=== PATIENT | female | born 1955 | race Caucasian/White ===

== ENCOUNTER 2017-08-27 19:28 | Emergency (ER) | payer BC ==
[2017-08-27 20:15] VITALS: BP 139/68
--- NOTE | 2017-08-27 21:54 | RAD ---
HISTORY: Left knee trauma, subacute, pain COMPARISONS: None VIEWS: 4, Frontal, lateral, axial, and oblique views of the left knee FINDINGS: BONE DENSITY: Normal. BONES: There is no displaced fracture. JOINTS: There is mild to moderate tricompartmental osteoarthritis. There is no suprapatellar joint effusion or lipohemarthrosis. ALIGNMENT: There is no dislocation. SOFT TISSUES: Unremarkable. OTHER FINDINGS: None. IMPRESSION: NO ACUTE OSSEOUS INJURY. IF SYMPTOMS PERSIST, RECOMMEND REPEAT IMAGING.
--- NOTE | 2017-08-27 21:54 | RAD ---
HISTORY: Right wrist subacute trauma COMPARISONS: None relevant VIEWS: 3, Frontal, lateral, and oblique views of the right wrist FINDINGS: BONE DENSITY: Normal. BONES: There is no displaced fracture. JOINTS: There is no arthropathy. ALIGNMENT: There is no dislocation. SOFT TISSUES: Unremarkable. OTHER FINDINGS: None. IMPRESSION: NO ACUTE OSSEOUS INJURY. IF SYMPTOMS PERSIST, RECOMMEND REPEAT IMAGING.
--- NOTE | 2017-08-27 22:22 | UC ---
Minor Trauma HPI - HPI Summary HPI Summary: 1.5 WEEKS AGO, FELL. HIT AND TWISTED LEFT KNEE AND RIGHT WRIST. SINCE TIME OF INJURY HAS HAD CONTINUED PAIN. - History of Current Complaint Chief Complaint: UCLowerExtremity Stated Complaint: LEFT KNEE INJURY, RIGHT WRIST INJURY Time Seen by Provider: 08/27/17 20:56 Hx Obtained From: Patient Hx Last Menstrual Period: n/a Onset/Duration: Gradual Onset, Lasting Weeks, Still Present Onset Of Pain: Post Accident Severity Initially: Mild Severity Currently: Moderate Mechanism Of Injury: Fall From A Standing Position, Twisted Aggravating Factor(s): Movement, Weight Bearing Alleviating Factor(s): Nothing - Allergies/Home Medications Allergies/Adverse Reactions: Allergies Allergy/AdvReac Type Severity Reaction Status Date / Time seasonal allergies Allergy Eyes Uncoded 08/27/17 20:15 Itchy/Swollen/Red/Watery PMH/Surg Hx/FS Hx/Imm Hx Previously Healthy: Yes - Surgical History Surgical History: Yes Surgery Procedure, Year, and Place: right knee arthroscopy, b/l catartacts, RIGHT shoulder surgery 10/2015 - Family History Known Family History: Positive: Cardiac Disease - in both parents and , Hypertension - Social History Occupation: Employed Full-time Lives: With Family Alcohol Use: None Substance Use Type: None Smoking Status (MU): Never Smoked Tobacco - Immunization History Most Recent Influenza Vaccination: none Most Recent Tetanus Shot: unk Most Recent Pneumonia Vaccination: never Review of Systems Constitutional: Negative Skin: Negative Eyes: Negative ENT: Negative Respiratory: Negative Cardiovascular: Negative Gastrointestinal: Negative Genitourinary: Negative Motor: Negative Neurovascular: Negative Musculoskeletal: Arthralgia, Myalgia Neurological: Negative Psychological: Negative Is Patient Immunocompromised?: No All Other Systems Reviewed And Are Negative: Yes Physical Exam Triage Information Reviewed: Yes Appearance: Well-Appearing, Well-Nourished, Pain Distress Vital Signs: Initial Vital Signs Temp 98 F 08/27/17 20:09 Pulse 78 08/27/17 20:09 Resp 18 08/27/17 20:09 BP 139/68 08/27/17 20:09 Pulse Ox 98 08/27/17 20:09 Vital Signs Reviewed: Yes Eye Exam: Normal ENT Exam: Normal ENT: Positive: Normal ENT inspection Dental Exam: Normal Neck exam: Normal Neck: Positive: Supple, Nontender, No Lymphadenopathy Respiratory Exam: Normal Respiratory: Positive: Chest non-tender, Lungs clear, Normal breath sounds, No respiratory distress Cardiovascular Exam: Normal Cardiovascular: Positive: RRR, No Murmur, Pulses Normal, Brisk Capillary Refill Abdominal Exam: Normal Musculoskeletal: Positive: Strength Limited @ - LEFT KNEE RIGHT WRIST, ROM Limited @, Edema @ - MILD RIGHT WRIST Neurological Exam: Normal Psychological Exam: Normal Skin Exam: Normal Minor Trauma Course/Dx - Differential Dx/Diagnosis Differential Diagnosis/HQI/PQRI: Fracture, Sprain, Strain Provider Diagnoses: RIGHT WRIST SPRAIN; LEFT KNEE SPRAIN Discharge - Discharge Plan Condition: Stable Disposition: HOME Patient Education Materials: Osteoarthritis (ED), Knee Pain (ED), Wrist Sprain (ED) Referrals: Arben Waddell MD [Medical Doctor] - Julio Cesar Salas MD [Primary Care Provider] -
== END 2017-08-27 22:22 | disposition home or self-care (01) ==
LOC: UCCORT 19:28
DX: S63.501A Unspecified sprain of right wrist, initial encounter (principal); S83.92XA Sprain of unspecified site of left knee, initial encounter; W19.XXXA Unspecified fall, initial encounter; Y93.9 Activity, unspecified; Y92.9 Unspecified place or not applicable
CPT/HCPCS: 99213; G0463

== ENCOUNTER 2018-10-08 12:02 | Inpatient (IN) | payer BC ==
--- NOTE | 2018-09-30 23:56 | HP ---
HISTORY AND PHYSICAL: DATE OF ADMISSION/SURGERY: 10/08/18 DATE OF OFFICE VISIT: 09/30/18 SURGEON: Hanna Theodore MD * (DICTATED BY MARTHA JAMESON) PROCEDURE: Left total knee arthroplasty. CHIEF COMPLAINT: Left knee pain. HISTORY OF PRESENT ILLNESS: Ms. Chicas is a 63-year-old female with continued complaints of left knee pain. She has failed conservative treatment and elected to proceed with a left total knee arthroplasty. PAST MEDICAL HISTORY: Hypertension. PAST SURGICAL HISTORY: 1. Right knee arthropathy. 2. Bilateral shoulder arthroscopies. 3. Cataract removal. CURRENT MEDICATIONS: 1. Vitamin D. 2. Baby aspirin. 3. Calcium. 4. Allergy relief. 5. Hydrochlorothiazide 12.5 mg daily. ALLERGIES: No known drug allergies. FAMILY HISTORY: Coronary artery disease and stroke. SOCIAL HISTORY: She is a 63-year-old female, lives with her son. She does not smoke, use drugs, or alcohol. REVIEW OF SYSTEMS: A complete 14-point review of systems was reviewed with the patient, it was all negative or noncontributory. PHYSICAL EXAMINATION GENERAL: She is well developed, well nourished, in no acute distress. VITAL SIGNS: She stands 5 feet 8 inches tall, weighs 280 pounds, her blood pressure 148/84, and heart rate is 84. HEENT: Normocephalic, atraumatic. NECK: Supple. No palpable lymph nodes. PULMONARY: The lungs are clear to auscultation bilaterally. CARDIO: Regular rate and rhythm. Strong S1, S2. ABDOMEN: Soft, nontender, nondistended. NEUROLOGICAL: She is alert and oriented x3. MUSCULOSKELETAL: Left lower extremity, the skin is intact. There are no open wounds or abrasions. She has some tenderness over the medial lateral joint line. There is some moderate joint effusion. Range of motion is 10 to 120 degrees of flexion. She has 2+ dorsalis pedis pulse. Intact sensation. Her lower extremity muscle group strengths are intact at 5/5. ASSESSMENT AND PLAN: Ms. Chicas is a 63-year-old female with end-stage osteoarthritis of the left knee. She has failed conservative treatment and elected to proceed with a left total knee arthroplasty. The surgery is scheduled for 10/08/[address] Theodore discussed the risks and benefits of the surgery at today's visit and all of her questions were answered. She will follow up with Dr. Theodore 2 weeks after the surgery. MARTHA JAMESON [id number]/CPS #: [id number] MTDFrancisca
[~2018-10-08 12:02] MED LIST: Acetaminophen TAB* 325 MG PO ONE; Buffered Lidocaine 0.9% SYRIN* 5 ML/SYR SYRINGE INTRADERM ONE; Bupivacaine 0.5% PF 10 ML VIAL INJ ONE; Famotidine IV* 10 MG/ML 2 ML (20 mg) IV ONE; Gabapentin CAP(*) 300 MG PO ONE; Tranexamic Acid 1,000 MG in NS 0.9% 50 ML* (outpatient use) IV SCH; celeCOXIB CAP* 200 MG PO ONE
--- OUTSIDE RECORDS SUMMARY | 2018-10-08 12:09 | XMS REPORT | Continuity of Care Document ---
:1955 External Reference #:[id number] Author Name Zelalem Lenz Care Team Providers Name Role Phone Julio Cesar Salas MD Primary Care Physician Unavailable Payers Type Date Identification Numbers Payment Provider Subscriber Policy Number: [id number] [employer] Enedina Chicas Group Number: [id number] [address] [address] PayID: [id number] RUSTY Fan [id number] Advance Directives Description No Information Available Problems Date Description Provider Status Onset: 09/04/2018 Localized, primary osteoarthritis Hanna Theodore M.D. 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 ETOH Use Denies alcohol use Tobacco Use Start: Unknown Patient has never smoked Smoking Status Reviewed: 09/30/18 Patient has never smoked Allergies, Adverse Reactions, Alerts Description No Known Drug Allergies Medications Medication Date Status Form Strength Qnty SIG Indications Ordering Provider Vitamin D 00/00/ Active Unknown 0000 Aspirin 00/00/ Active 81mg 1 by Unknown 0000 mouth every day Calcium 00// Active Unknown 0000 Allergy Relief 00/ Active Unknown 0000 Hydrochlorothiazide 0000/ Active Capsules 12.5mg 1 by Unknown 0000 mouth every day Immunizations Description No Information Available Vital Signs Date Vital Result Comment 09/30/2018 9:40am Height 68 inches 5'8" Weight 279.00 lb Heart Rate 84 /min BP Systolic 148 mmHg BP Diastolic 84 mmHg BMI (Body Mass Index) 42.4 kg/m2 09/04/2018 9:03am Height 68 inches 5'8" Weight 279.75 lb Heart Rate 68 /min BP Systolic 144 mmHg BP Diastolic 80 mmHg Respiratory Rate 16 /min Body Temperature 98.3 F Pain Level 5 BMI (Body Mass Index) 42.5 kg/m2 Results Description No Information Available Procedures Date Code Description Status 12/22/2015 74804 EKG, Interpretation Only Completed Encounters Type Date Location Provider Dx Diagnosis Office Visit 09/04/2018 [facility] Theodore, M25.562 [facility] left [facility]25.462 Effusion, left knee M17.12 Unilateral primary osteoarthritis, left knee Office Visit 12/22/2015 [facility] Basim Rosenberg R07.9 Chest pain, 10:31a Assoc,juana BROWN M.D. unspecified Hospitalists R42 Dizziness and giddiness I10 Essential (primary) hypertension Office Visit 12/21/2015 10:30a [facility] Radha Perez R07.9 Chest pain, Assoc,pc Kaveh N[facility]Bon[facility] unspecified Hospitalists R42 Dizziness and giddiness I10 Essential (primary) hypertension Plan of Treatment Future Appointment(s):10/21/2018 9:45 am - Rashaun Arreola PA-C at [facility]10/08/2018 3:30 pm - Rashaun Arreola PA-C at [facility]10/08/2018 3:30 pm - [facility] 3:30 pm - Hanna Theodore M.D. at [facility]09/30/2018 - Hanna Theodore M.D.M25.562 Pain in left kneeFollow up:Follow up: 2 weeks after rtebcktO71.462 Effusion, left kneeM17.12 Unilateral primary osteoarthritis, left knee
[2018-10-08] MEDS ORDERED: Ondansetron INJ* 2 MG/ML VIAL ONE (12:35)
[2018-10-08] MEDS ORDERED: Lidocaine 2% PF * 5 ML VIAL ONE (12:35)
[2018-10-08] MEDS ORDERED: KETAMINE HCL* 50 MG/ML 10 ML VIAL ONE (12:35)
[2018-10-08] MEDS ORDERED: fentaNYL* 50 MCG/ML 2 ML VIAL (100 MCG VIAL) ONE ×4 (12:35→15:38)
[2018-10-08] MEDS ORDERED: Propofol* 10 MG/ML 20 ML BTL ONE (12:35)
[2018-10-08] MEDS ORDERED: Midazolam* 1 MG/ML 10 ML VIAL (10 MG) ONE (12:35)
[2018-10-08] MEDS ORDERED: Dexamethasone IV* 4 MG/ML 1 ML (4 MG) ONE (12:35)
[2018-10-08] MEDS ORDERED: HYDROmorphone INJ1* 1 MG/ML SYRINGE ONE (13:00)
[2018-10-08] MEDS ORDERED: Famotidine IV* 10 MG/ML 2 ML (20 mg) ONE (13:04)
[2018-10-08] MEDS ORDERED: celeCOXIB CAP* 100 MG ONE (13:04)
[2018-10-08] MEDS ORDERED: Acetaminophen TAB* 325 MG ONE (13:04)
[2018-10-08] MEDS ORDERED: ceFAZolin 2 GM PREMIX in ORs 2 GM/50 ML BAG IVPB ONE (13:05)
[2018-10-08] MEDS ORDERED: Gabapentin CAP(*) 300 MG ONE (13:05)
[2018-10-08] MEDS ORDERED: ROPIVACAINE 5 MG/ML 30 ML BTL (0.5%) ONE (13:53)
[2018-10-08] MEDS ORDERED: Labetalol IV* 5 MG/ML 20 ML VIAL ONE (15:41)
[2018-10-08] MEDS ORDERED: Cisatracurium* 2 MG/ML MDV 5 ML ONE (16:02)
[2018-10-08] MEDS ORDERED: ceFAZolin 1 GM VIAL(*) ONE (16:18)
[2018-10-08] MEDS ORDERED: Ondansetron INJ* 2 MG/ML VIAL IV PRN ×2 (16:42→17:22)
[2018-10-08] MEDS ORDERED: HYDROmorphone INJ1* 1 MG/ML SYRINGE IV PRN (16:42)
[2018-10-08] MEDS ORDERED: Naloxone* 0.4 MG/ML 1 ML VIAL IV PRN (16:42)
[2018-10-08] MEDS ORDERED: fentaNYL* 50 MCG/ML 2 ML VIAL (100 MCG VIAL) IV PRN (16:42)
[2018-10-08] MEDS ORDERED: Glycopyrrolate IV* 0.2 MG/ML 1 ML VIAL ONE (16:55)
[2018-10-08] MEDS ORDERED: Neostigmine Methylsulfate* 1 MG/ML 10 ML VIAL (1 mg/ml) ONE (16:55)
[2018-10-08] MEDS ORDERED: traMADol TAB* 50 MG PO PRN (17:22)
[2018-10-08] MEDS ORDERED: Polyethylene Glycol 3350* 17 GM PACKET PO PRN (17:22)
[2018-10-08] MEDS ORDERED: Morphine VIAL* 4 MG/ML VIAL (1 ml vial) IV PRN (17:22)
[2018-10-08] MEDS ORDERED: Bisacodyl SUPP* 10 MG SUPP PR PRN (17:22)
[2018-10-08] MEDS ORDERED: diPHENhydraMINE IV* 50 MG/ML 1 ml VIAL (BENADRYL) IV PRN (17:22)
[2018-10-08] MEDS ORDERED: Magnesium Hydroxide LIQ* 30 ML UDC PO PRN (17:22)
[2018-10-08] MEDS ORDERED: oxyCODONE TAB* 5 MG TAB PO PRN (17:22)
[2018-10-08] MEDS ORDERED: Ondansetron TAB* 4 MG PO PRN (17:22)
[2018-10-08] MEDS ORDERED: Warfarin TAB(*) 6 MG PO ONE ×2 (18:00→22:00)
[2018-10-08] MEDS ORDERED: oxyCODONE/Acetamin 5/325 MG* TAB ONE (18:21)
[2018-10-08] MEDS: oxyCODONE/Acetamin 5/325 MG* TAB PO PRN (18:22)
[2018-10-08] MEDS: Acetaminophen TAB* 325 MG PO SCH (21:59)
[2018-10-08] MEDS: Docusate CAP* 100 MG PO SCH (21:59)
[2018-10-08] MEDS: Magnesium Hydroxide LIQ* 30 ML UDC PO SCH (21:59)
[2018-10-08] MEDS: ceFAZolin 1 GM ADVAN(*) 1 GM in NS 0.9% 50 ML* 50 ML IVPB SCH (22:46)
--- NOTE | 2018-10-08 22:55 | CONS ---
CC: Dr. Theodore; Dr. Salas * CONSULTATION REPORT: DATE OF CONSULT: 10/08/18 PRIMARY CARE PROVIDER: Dr. Salas. REQUESTING PHYSICIAN FOR CONSULT: Dr. Hanna Theodore. MY ATTENDING PHYSICIAN WHILE IN THE HOSPITAL: Dr. China Villanueva (report being dictated by Gary Milton NP). REASON FOR MEDICAL CONSULTATION: Evaluation and medical management of comorbid medical conditions. HISTORY OF PRESENTING ILLNESS: Mrs. Chicas is a 63-year-old female patient that has been dealing with left knee pain for some time. She had failed conservative therapy. She sought care with Dr. Theodore. It was felt that she would benefit from a left total knee. She underwent the left total knee replacement with Dr. Theodore today. She carries a history of hypertension, hyperlipidemia, sarcoidosis, vitamin D deficiency, anxiety, eczema, vertigo, and varicose veins. Because of this complexity, we were asked to evaluate in consult. She is evaluated in the PACU. She says she is feeling loopy, she feels tired. She denies any lightheadedness or dizziness. She denies having any chest pain or shortness of breath. She denies having any abdominal pain. She denies having any vomiting. She says that she does not feel lightheaded and does not feel like she is going to faint. Because of her medical complexity though we were asked to evaluate in consult. PAST MEDICAL HISTORY: Significant for: 1. Hypertension. 2. Hyperlipidemia. 3. Sarcoidosis. 4. Vitamin D deficiency. 5. Anxiety. 6. Eczema. 7. Vertigo. 8. Varicose veins. PAST SURGICAL HISTORY: 1. She has had right knee arthroscopy. 2. Bilateral shoulder arthroscopies. 3. Cataract extraction. 4. Today, she had a left total knee replacement. HOME MEDICATIONS: According to preop list include: 1. Hydrochlorothiazide 12.5 mg p.o. q.a.m. 2. Claritin 10 mg p.o. daily. 3. Vitamin D3 5000 units p.o. q.a.m. 4. Calcium 600 mg p.o. q.a.m. 5. Aspirin 81 mg daily. ALLERGIES TO MEDICATIONS: No known drug allergies. FAMILY HISTORY: Both her parents had MIs. SOCIAL HISTORY: She does not smoke. She does not drink. Surrogate decision maker is her daughter. REVIEW OF SYSTEMS: There is no documented fever. She denied having any significant weight change. There is no double vision. There is no ear discharge. She denies having any rhinorrhea. There is no sore throat. There is no thyroid enlargement. She denied having any chest pain. There is no orthopnea. There is no nocturnal dyspnea. There is no abdominal pain. There is no nausea. There is no vomiting. There is no dysuria, no frequency. No seizure. There is no loss of consciousness. No pruritus and no skin ulcerations. Review of 14 systems completed, all others negative. PHYSICAL EXAM: Vital Signs: Blood pressure 150/77, pulse 73, respirations 20, O2 sat 99%, temperature 97.9. General: At this time, Mrs. Chicas is a 63-year- old female patient, she is sitting in the PACU bed. She does not appear to be in any acute distress. She appears to be well nourished and well developed. HEENT: Head is atraumatic and normocephalic. Eyes: EOMs intact. Sclerae are anicteric and not pale. Neck: Supple. Throat: Oral mucosa appears to be dry. No oropharyngeal erythema. Heart: Sounds S1, S2. She had a regular rate and rhythm. There were no murmurs, rubs, or gallops. Lungs: Clear. No wheezes, rales, or rhonchi. Abdomen: Soft, it was flat and nontender. Bowel sounds were present. Extremities: Pulses were 2+. Distal CSM checks were intact to the left lower extremity. She had 5/5 strength in the right, 5/5 strength in the upper. Neurologically, she had no gross focal deficits. Skin: Intact with an exception she has an incision to the left knee, which is covered with a dressing, clean, dry, and intact. DIAGNOSTIC STUDIES/LAB DATA: Preop WBC 9.3, RBC of 5.29, hemoglobin 15.8, hematocrit of 46, platelet count of 256. INR 0.96, PTT of 30.7. Sodium 139, potassium of 3.9, chloride of 102, bicarb 30, BUN 13, creatinine of 0.69, glucose was 94. Urine showed 1+ blood, 1+ rbc. She had a preop EKG, which showed a normal sinus rhythm, rate 74. She had no ST elevations or T-wave inversions. She had a preop chest x-ray, which showed no active cardiopulmonary disease. Old medical records were reviewed. ASSESSMENT AND PLAN: Mrs. Chicas is a 63-year-old female patient coming into the Orthopedic Service today for an elective left total knee. We were asked to evaluate and consult. My recommendations at this point are: 1. Status post left total knee. We will defer the management to Dr. Theodore and her team. 2. Hypertension. She is on hydrochlorothiazide. I would recommend holding her hydrochlorothiazide and restarting when able. We may consider starting maybe something like Norvasc diuretic postoperatively and may not be the best choice. 3. Sarcoidosis, appears to be stable. We will continue to monitor. 4. Hyperlipidemia. Follow up with primary care physician. 5. Vitamin D deficiency, not an active issue. Follow up with primary care physician. 6. Anxiety. Continue with supportive care. 7. Eczema, not an active issue currently. We will follow. 8. Vertigo. Again monitor for any symptoms, not an active issue. 9. Varicose veins. Again follow up with primary care physician. 10. DVT prophylaxis. Defer to primary team. 11. Fluids, electrolytes, and nutrition. I would recommend a regular diet. 12. Code status. Full code. TIME SPENT: Time spent on the consult was 60 minutes; greater than half of the time spent [id number] with the patient obtaining my history and physical, the other half time was spent going over the plan of care with the patient and implementing plan of care. I did discuss the plan of care with my attending, Dr. Villanueva; she is in agreement. GARY MILTON NP [id number]/CPS #: [id number] JAYDON
[2018-10-09] MEDS: Cyclobenzaprine TAB* 10 MG PO PRN ×2 (00:09→19:50)
[2018-10-09] MEDS: oxyCODONE/Acetamin 5/325 MG* TAB PO PRN ×4 (05:32→20:05)
[2018-10-09] MEDS: Acetaminophen TAB* 325 MG PO SCH ×3 (07:01→22:29)
[2018-10-09] MEDS: ceFAZolin 1 GM ADVAN(*) 1 GM in NS 0.9% 50 ML* 50 ML IVPB SCH ×2 (07:13→16:06)
--- NOTE | 2018-10-09 07:17 | PN ---
Progress Note - Progress Note Date of Service: 10/09/18 SOAP: Subjective: Pt. is alert, pain is controlled. Objective: Vital Signs: Temp Pulse Resp BP Pulse Ox 97.6 F 90 18 154/56 95 10/09/18 01:55 10/09/18 01:55 10/09/18 05:32 10/09/18 01:55 10/09/18 01:55 LLE - dressing c/d/i. thigh ttp but soft. distally +df/pf, full sens lt, 2+ dp pulse. Assessment: 63 yo F pod 1 s/p LTKA Plan: wbat lle pt/ot lovenox vs eliquis for dvt plan home with vns - home pt
[2018-10-09 08:01] LABS: Hematocrit 34 % (35-47); Hemoglobin 11.8 g/dl (12.0-16.0); Mean Platelet Volume 9.3 fL (7.4-10.4); Platelet Count 220 10^3/ul (150-450)
[2018-10-09 08:08] LABS: INR 1.03 (0.77-1.02)
[2018-10-09 08:20] LABS: EGFR Non-African American 85.9 (>60)
[2018-10-09] MEDS ORDERED: NON FORMULARY MED* (Hydrochlorothiazide [Hydrochlorothiazide] 12.5 MG) PO SCH (09:00)
[2018-10-09] MEDS: Docusate CAP* 100 MG PO SCH ×2 (10:00→20:05)
[2018-10-09] MEDS: Magnesium Hydroxide LIQ* 30 ML UDC PO SCH ×2 (10:01→20:04)
[2018-10-09] MEDS: Enoxaparin(*) 40 MG/0.4 ML SYR SUBCUT SCH (12:53)
--- NOTE | 2018-10-09 12:55 | PN ---
Subjective Date of Service: 10/09/18 Interval History: Ms. Chicas is feeling ok today. She reports minimal pain. Pain was improved with ice. She has not been up yet today. Denies CP, SOB, N/V/D, dizziness. Reports that she does not typically have an issue with constipation and is not concerned, but does have laxatives at home which she can use if necessary. Family History: Unchanged from Admission Social History: Unchanged from Admission Past Medical History: Unchanged from Admission Objective Active Medications: Acetaminophen (Tylenol Tab*) 975 mg PO Q8H BRISA Bisacodyl (Dulcolax Supp*) 10 mg TX DAILY PRN constipation Cyclobenzaprine HCl (Flexeril Tab*) 10 mg PO TID PRN SPASMS Diphenhydramine HCl (Benadryl Iv*) 12.5 mg IV Q6H PRN PRURITIS Docusate Sodium (Colace Cap*) 100 mg PO BID BRISA Enoxaparin Sodium (Lovenox(*)) 40 mg SUBCUT Q24H BRISA Cefazolin Sodium 1 gm/ Sodium (Chloride) 50 mls @ 200 mls/hr IVPB Q8H BRISA Lactated Ringer's (Lactated Ringers 1000 Ml Bag*) 1,000 mls @ 100 mls/hr IV PER RATE BRISA Lactulose (Lactulose*) 30 ml PO Q6H PRN constipation Magnesium Hydroxide (Milk Of Magnesia Liq*) 30 ml PO BID BRISA Magnesium Hydroxide (Milk Of Magnesia Liq*) 30 ml PO Q6H PRN constipation Morphine Sulfate (Morphine Vial*) 2 mg IV Q2H PRN PAIN Ondansetron HCl (Zofran Inj*) 4 mg IV Q6H PRN nausea Ondansetron HCl (Zofran Tab*) 4 mg PO Q6H PRN NAUSEA Oxycodone HCl (Roxycodone Tab*) 10 mg PO Q4H PRN SEVERE PAIN Oxycodone/Acetaminophen (Percocet 5/325 Tab*) 1 tab PO Q4H PRN PAIN Oxycodone/Acetaminophen (Percocet 5/325 Tab*) 2 tab PO Q4H PRN PAIN Polyethylene Glycol/Electrolytes (Miralax*) 17 gm PO DAILY PRN Constipation Tramadol HCl (Ultram*) 50 mg PO Q6H PRN PAIN Vital Signs - 8 hr 10/09/18 10/09/18 10/09/18 05:32 07:28 08:00 Temperature 98.0 F Pulse Rate 89 Respiratory 18 18 18 Rate Blood Pressure 126/54 (mmHg) O2 Sat by Pulse 94 94 Oximetry Oxygen Devices in Use Now: None Appearance: Middle-aged female sitting in bed in NAD Eyes: No Scleral Icterus Ears/Nose/Mouth/Throat: Mucous Membranes Moist Neck: NL Appearance and Movements; NL JVP, Trachea Midline Respiratory: Symmetrical Chest Expansion and Respiratory Effort, Clear to Auscultation Cardiovascular: NL Sounds; No Murmurs; No JVD Abdominal: NL Sounds; No Tenderness; No Distention Extremities: - - Mild nonpitting edema to LLE Skin: - - Surgical dressing in place to left knee Neurological: Alert and Oriented x 3, NL Sensation Lines/Tubes/Other Access: Clean, Dry and Intact Peripheral IV Nutrition: Taking PO's Result Diagrams: 10/09/18 07:32 10/09/18 07:32 Assess/Plan/Problems-Billing Assessment: Ms. Chicas is a 63yo with PMH of HTN, HLD, sarcoidosis, and anxiety who presented to [facility] [place] on 10/08 for an elective L TKA with Dr. Theodore. [facility] medicine is consulting for co-medical management. - Patient Problems (1) Status post total left knee replacement Current Visit: Yes Status: Acute Code(s): Z96.652 - PRESENCE OF LEFT ARTIFICIAL KNEE JOINT SNOMED Code(s): 0633465934612 Comment: - Management per ortho - Pain control, PT (2) Essential hypertension Current Visit: No Status: Chronic Code(s): I10 - ESSENTIAL (PRIMARY) HYPERTENSION SNOMED Code(s): 28282358 Comment: - Normotensive - May resume HCTZ at d/c (3) Hyperlipidemia Current Visit: Yes Status: Acute Code(s): E78.5 - HYPERLIPIDEMIA, UNSPECIFIED SNOMED Code(s): 17735312 Comment: - Diet controlled (4) DVT prophylaxis Current Visit: Yes Status: Acute Code(s): MOC4441 - SNOMED Code(s): 641994499 Comment: - Lovenox per ortho (5) Full code status Current Visit: Yes Status: Acute Code(s): Z78.9 - OTHER SPECIFIED HEALTH STATUS SNOMED Code(s): 466571481 Status and Disposition: Disposition per Orthopedics. Thank you for this consultation. We will continue to follow distantly. Please call with any questions. Attending: Bibiana Fernandez
[2018-10-10] MEDS: oxyCODONE/Acetamin 5/325 MG* TAB PO PRN ×3 (00:43→10:23)
--- NOTE | 2018-10-10 00:49 | OP ---
OPERATIVE NOTE: DATE OF OPERATION: 10/08/18 DATE OF : 55 ATTENDING SURGEON: Hanna Theodore MD SACK CLEANING HAND: MARTHA Adhikari Ms. did help throughout the procedure with preparation of the leg, wound retraction, manipul ation of the knee, and wound closure. ANESTHESIOLOGIST: Dr. Lam. ANESTHESIA: General. PRE-OP DIAGNOSIS: Severe end-stage degenerative osteoarthritis of the left knee joint. POST-OP DIAGNOSIS: Severe end-stage degenerative osteoarthritis of the left knee joint. OPERATIVE PROCEDURE: Left total knee arthroplasty. TOURNIQUET TIME: 55 minutes. COMPLICATIONS: None. ESTIMATED BLOOD LOSS: 400 cc. SPECIMENS: Bone and cartilage from the left knee joint sent to Pathology. HARDWARE USED: This is cemented Blas and Nephew total knee arthroplasty hardware. Two packages of S implex bone cement were used. For the femur, a left 5 narrow Oxinium posterior stabilized femoral co mponent, type Legion. For the tibia, a size 3 left Ximena II tibial base plate. For the insert, a 9 mm posterior stabilized articular insert size 3/4. For the patella, a 32 mm 3-peg all poly patella . INDICATIONS: Ms. Chicas is a 63-year-old female with years of increasingly severe left knee pain. R adiographs showed advanced arthritis. Due to continued pain and decreased quality of life, the patie nt elected to undergo a left total knee arthroplasty. Informed consent was obtained from the patient . She understood the risks of surgery included, but were not limited to, bleeding, infection, damage to nearby structures, continued pain, need for further surgery, intraoperative fracture, nerve palsy , hardware failure or loosening, knee stiffness, loss of motion, stroke, heart attack, blood clot, an d . She wished to proceed. INTRAOPERATIVE FINDINGS: Intraoperatively, the patient was found to have advanced arthritis with com plete loss of cartilage in all compartments. She had extensive osteophyte formation. DESCRIPTION OF PROCEDURE: Ms. Chicas was identified in the preanesthesia unit. Her left lower extrem ity was marked as the correct operative side. Informed consent was obtained from the patient. The p atient was taken to the operating room and placed under anesthesia. A Kong catheter was placed. To urniquet was placed on the left thigh. Left lower extremity was prepped and draped in the usual ster ile fashion. Preop time-out was made to correctly identify the patient, side, and site. Appropriate perioperative antibiotics were given within 1 hour of incision. Tourniquet was inflated and total tourniquet time for this procedure was 55 minutes. A midline incis ion was made with a 10 blade and carried down to the extensor mechanism. A new 10 blade was used to make a standard medial parapatellar arthrotomy. Patella was subluxed laterally. Electrocautery was used to elevate soft tissue off the superomedial tibia to the mid sagittal plane. The knee was flexe d up. The anterior horn of the lateral meniscus and ACL were sharply released. A drill was used to enter the distal femur. Intramedullary distal femoral cutting guide was pinned on the distal femur. Oscillating saw was used to make the distal femoral cut. Next, the external rotation guide was pinn ed on the distal femur. Distal femur was sized to a size 5. Size 5 multi-cutting jig was pinned on the distal femur. Oscillating saw was used to make the appropriate 4 chamfer cuts. The PCL was completely released. The tibia was subluxed anteriorly. Extramedullary tibial cutting gu sourav was pinned on the proximal tibia. Oscillating saw was used to make the proximal tibial cut perpe ndicular to the mechanical axis of the tibia. The bone was carefully removed. The knee was brought out into full extension. Spacer block had excellent fit. Medial and lateral ligaments were well bal anced. Flexion and extension gaps were well balanced. The knee was flexed up. Lamina chemical weigher was p laced both medially and laterally. Any remaining meniscus was carefully removed using electrocautery . Curved osteotome was used to remove any posterior osteophytes. Tibial tray and drop daily were plac ed and once again confirmed a satisfactory tibial cut. A size 5 narrow left femoral trial was impacted onto the distal femur and had excellent fit and stabi lity. The box for the posterior stabilized implant was prepared using a reamer and box-cut osteotome . A size 3 tibial tray trial with a 9 mm insert trial was placed and the knee was taken through a ra nge of motion. The knee had full extension and 120 degrees of flexion with satisfactory patellofemor al tracking. Flexion was inhibited by the patient's morbidly obese body habitus. The knee was extended and the patella was everted. A 9 mm of patellar bone and cartilage were carefu lly removed using an oscillating saw. Patella was sized to a size 32. Three peg holes were drilled through the size 32 guide. A 32 trial patella was placed and the knee was taken through a range of m otion. There was satisfactory patellofemoral tracking. All trials were carefully removed. The tibi a was subluxed anteriorly and sized to a size 3. Proximal tibia was prepared using a size 3 keel pun ch. All bony cut surfaces were copiously irrigated with sterile saline and dried. Final implants we re cemented into place starting with the tibia, followed by the femur, and last the patella. A 9 mm insert trial was placed and the knee was brought out into full extension. Tourniquet was turned down at 55 minutes. The knee was copiously irrigated with sterile saline. Electrocautery was used to obtain meticulous h emostasis. Once the cement had fully cured, the insert trial was removed. Any excess cement was rem garry from around the capsule and hardware. Final insert chosen was a 9 mm posterior stabilized articu lar insert size 3/4. This was locked into position on the tibial tray. Stability of the insert was c hecked and rechecked and noted to be stable. The extensor mechanism was closed using interrupted #1 Vicryl. The rest of the incision was closed i n a layered fashion using 0 and 2-0 Vicryl. Skin was closed using running 3-0 nylon. Sterile Xerofo rm, 4x4s, and Webril were used to cover the incision. Doyle wrap and cold pack were placed over this. The patient's anesthesia was reversed without difficulty. She was taken to the PACU in stable condi tion. Intended weightbearing will be weightbearing as tolerated. Intended DVT prophylaxis will be Lo venox or Eliquis. [id number]/[facility] #: [id number]
[2018-10-10] MEDS: Acetaminophen TAB* 325 MG PO SCH (05:53)
[2018-10-10 06:30] LABS: Hematocrit 33 % (35-47); Hemoglobin 11.4 g/dl (12.0-16.0); Platelet Count 168 10^3/ul (150-450)
[2018-10-10 06:34] LABS: INR 1.11 (0.77-1.02)
[2018-10-10 06:54] LABS: EGFR Non-African American 102.9 (>60)
[2018-10-10 07:51] VITALS: BP 124/52
--- NOTE | 2018-10-10 08:17 | PN ---
Progress Note - Progress Note Date of Service: 10/10/18 SOAP: Subjective: POD #2 Left TKA. Doing well, pain controlled. Denies CP/SOB, f/c, calf pain. Objective: Vitals: Temp Pulse Resp BP Pulse Ox 98.1 F 86 16 124/52 98 10/10/18 07:24 10/10/18 07:24 10/10/18 07:24 10/10/18 07:24 10/10/18 07:24 Gen: A&Ox3, NAD at rest laying in bed LLE: Incision C/D/I, mild edema. +f/e at ankles and MTPs. N/V intact Labs: Laboratory Results - last 24 hr 10/09/18 10/10/18 10/10/18 07:32 06:11 06:11 Hgb 11.4 L Hct 33 L Plt Count 168 MPV 9.0 INR (Anticoag Therapy) 1.11 H Sodium 136 Potassium 4.2 Chloride 103 Carbon Dioxide 28 Anion Gap 5 BUN 11 Creatinine 0.69 Est GFR ( Amer) 104.0 Est GFR (Non-Af Amer) 85.9 BUN/Creatinine Ratio 15.9 Glucose 158 H Calcium 8.6 10/10/18 06:11 Hgb Hct Plt Count MPV INR (Anticoag Therapy) Sodium 138 Potassium 4.1 Chloride 104 Carbon Dioxide 30 Anion Gap 4 BUN 14 Creatinine 0.59 Est GFR ( Amer) 124.6 Est GFR (Non-Af Amer) 102.9 BUN/Creatinine Ratio 23.7 H Glucose 148 H Calcium 8.3 L Assessment: POD #2 Left TKA Plan: D/C home today Eliquis 2.5mg BID for DVT ppx F/u with Dr. Theodore 10-14 days post op
[2018-10-10] MEDS: Docusate CAP* 100 MG PO SCH (08:52)
[2018-10-10] MEDS: Magnesium Hydroxide LIQ* 30 ML UDC PO SCH (08:53)
[2018-10-10] MEDS: Enoxaparin(*) 40 MG/0.4 ML SYR SUBCUT SCH (10:57)
--- NOTE | 2018-10-10 21:54 | DS ---
AMENDED REPORT NOW INCLUDES DESIGNATED COSIGNER DISCHARGE SUMMARY: DATE OF ADMISSION: 10/08/18 DATE OF DISCHARGE: 10/10/18 PROVIDER: Dr. Hanna Theodore.* (DICTATED BY MARTHA RUBIO) ADMITTING DIAGNOSIS: Severe end-stage osteoarthritis of the left knee. DISCHARGE DIAGNOSIS: Severe end-stage osteoarthritis of the left knee, status post left total knee arthroplasty. SECONDARY DIAGNOSIS: Hypertension. HISTORY OF PRESENT ILLNESS: Ms. Chicas is a 63-year-old female who has had continued complaints of left knee pain. She failed conservative treatment and elected to proceed with a left total knee arthroplasty. HOSPITAL COURSE: On 10/08/18, the patient was admitted to [facility] and underwent a successful left total knee arthroplasty by Dr. Theodore. She recovered briefly in the postanesthesia care unit and was transferred to the short- stay surgical unit in stable condition. On postop day 1, the patient was able to participate with physical therapy and ambulate with the use of a rolling walker. She had an H and H of 11.8 and 34, INR was 1.03. Kong catheter was removed. She was able to void without difficulty. On postop day 2 , patient's pain was controlled with oral pain medication only. She is able to again ambulate with physical therapy a longer distance. H and H was stable at 11.4 and 33. INR 1.11. Throughout her hospital course, the patient's vital signs were stable and she remained afebrile. She was found stable for discharge home on postop day 2. DISCHARGE CONDITION: Stable. DISCHARGE DISPOSITION: Home. DISCHARGE MEDICATIONS: The patient will use: 1. Percocet 5/325 mg 1 to 2 tabs p.o. 4 to 6 hours p.r.n. pain. 2. Eliquis 2.5 mg p.o. b.i.d. for DVT prophylaxis. 3. Colace 100 mg p.o. b.i.d. She will resume her home medications of: 1. Hydrochlorothiazide 12.5 mg daily. 2. Claritin 10 mg daily. 3. Vitamin D3 5000 units daily. 4. Calcium 600 mg daily. 5. Aspirin 81 mg daily. DISCHARGE INSTRUCTIONS: The patient will be weightbearing as tolerated with the use a rolling walker. She will shower normally and wash the incision on postop day 3. She will apply a dry dressing as needed. She is understanding not to submerge the wound in a bathtub, hot tub, or swimming pool. She will follow up in the office in the 10 to [address] Theodore. She will have home nursing services for wound checks and physical therapy. All of her questions were answered to her full satisfaction. She is understanding to call with any problems or concerns. MARTHA RUBIO [id number]/[facility] #: [id number] JAYDON
== END 2018-10-10 11:50 | disposition home health service (06) | DRG 302 ==
LOC: AA 12:02 → SSU 19:38
PROVIDERS: ADMIT Orthopaedic Surgery Adult Reconstructive Orthopaedic Surgery; ATTEND Orthopaedic Surgery Adult Reconstructive Orthopaedic Surgery
PROC: 0SRD069 Replacement of Left Knee Joint with Oxidized Zirconium on Polyethylene Synthetic Substitute, Cemented, Open Approach (ICD-10-PCS; principal; 2018-10-08 15:00)
DX: M17.12 Unilateral primary osteoarthritis, left knee (principal); I10 Essential (primary) hypertension; Z96.651 Presence of right artificial knee joint; M25.462 Effusion, left knee; E78.5 Hyperlipidemia, unspecified; D86.9 Sarcoidosis, unspecified; E55.9 Vitamin D deficiency, unspecified; F41.9 Anxiety disorder, unspecified; M25.762 Osteophyte, left knee; I83.90 Asymptomatic varicose veins of unspecified lower extremity; L30.9 Dermatitis, unspecified; K59.00 Constipation, unspecified; Z79.01 Long term (current) use of anticoagulants; Z79.82 Long term (current) use of aspirin; Z98.49 Cataract extraction status, unspecified eye; Z82.49 Family history of ischemic heart disease and other diseases of the circulatory system; Z82.3 Family history of stroke
CPT/HCPCS: 36415; 80048; 85014; 85018; 85049; 85610; 88305; 88311; A9270-GY; J0690; J1100; J1170; J1650; J2250; J2405; J2704; J2710; J2795; J3010

== ENCOUNTER 2019-07-15 09:07 | Inpatient (IN) | payer BC ==
--- NOTE | 2019-07-08 15:40 | HP ---
AMENDED REPORT NOW INCLUDES DESIGNATED COSIGNER - ESIGNED BEFORE ADJUSTMENTS PREOPERATIVE HISTORY AND PHYSICAL: DATE OF ADMISSION/SURGERY: 07/15/19 ATTENDING PHYSICIAN: Dr. Hanna Theodore.* (DICTATED BY MARTHA DELA CRUZ) PROCEDURE: Right total knee arthroplasty. CHIEF COMPLAINT: Right knee pain. HISTORY OF PRESENT ILLNESS: This is a 64-year-old female followed by Dr. Theodore for severe right knee pain that has become progressively worse over the last few years. She can no longer walk more than 2 blocks due to the pain and has tried anti- inflammatories, pain medicine, physical therapy, and other conservative treatments without improvement. She is seeking surgical intervention at this time. PAST MEDICAL HISTORY: Hypertension, osteoarthritis, morbid obesity. She denies history of DVT or PE. PAST SURGICAL HISTORY: Shoulder arthroscopy, cataract surgery, left total knee arthroplasty in September 2018. She denies anesthetic complications with these procedures. MEDICATIONS: 1. Vitamin D 1 tab by mouth daily. 2. Aspirin 81 mg 1 tab by mouth daily. 3. Calcium 600 mg 1 tab by mouth daily. 4. Hydrochlorothiazide 12.5 mg 1 tab by mouth daily. 5. Loratadine 10 mg 1 tab by mouth daily. ALLERGIES: None. FAMILY HISTORY: Heart disease, but no diabetes or cancer. SOCIAL HISTORY: She lives with her son and grandchild and they will be caring for her postoperatively. 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 She denies tobacco, alcohol , or recreational drug use. She is normally an independent ambulator. REVIEW OF SYSTEMS: Fourteen systems were reviewed with the patient today and positive for right knee pain and swelling. Negative for fevers, chills, chest pain, or shortness of breath, and all other systems are negative. PHYSICAL EXAMINATION GENERAL: She is a well-developed, well-nourished female, seated on exam table, in no acute distress, with appropriate affect. VITAL SIGNS: Height 68 inches, weight 286 pounds. Pulse 80, blood pressure 144 /84, respirations 18. HEENT: Normocephalic, atraumatic. Hearing and vision are grossly intact, with extraocular movements intact. NECK: The trachea is midline and symmetrical. LUNGS: Clear to auscultation. No wheezes, rales, or rhonchi appreciated. CARDIO: Regular rate and rhythm. Normal S1, S2. No murmurs, rubs, or gallops noted. ABDOMEN: Nondistended. Bowel sounds present. GENITOURINARY: Deferred. MUSCULOSKELETAL: Right lower extremity: The skin is pink, dry, and intact with no open wounds or abrasions. Mild effusion is noted at the knee. She extends the knee to 10 degrees, flexes to 100 with pain with patellofemoral crepitus. Stable to varus and valgus stress. Sensation is intact. Active range of motion in the right ankle. 2+ dorsalis pedis pulse. IMAGING: Previous x-rays obtained in the office show a left knee with a total cemented total knee arthroplasty. The right knee shows severe end-stage osteoarthritis with medial [id number]-[id number] contact and tricompartmental joint space narrowing, osteophyte formation and subchondral sclerosis. ASSESSMENT: Severe right knee osteoarthritis. PLAN: Right total knee arthroplasty with Dr. Theodore. The patient's questions were answered and she would like to proceed. Dr. Theodore reviewed the potential risks and complications of the procedure. She will follow up postoperatively and pain medication will be dispensed postoperatively. MARTHA DELA CRUZ [id number]/[facility] #: [id number] JAYDON
[~2019-07-15 09:07] MED LIST changes: -Buffered Lidocaine 0.9% SYRIN* 5 ML/SYR SYRINGE INTRADERM ONE; +Buffered Lidocaine 1% SYRIN* 1 ML/SYRINGE INTRADERM ONE; -Bupivacaine 0.5% PF 10 ML VIAL INJ ONE; +Dexamethasone TAB* 4 MG PO ONE; +Lactated Ringers 1000 ML Bag* 1,000 ML IV SCH; +Ondansetron ODT TAB* 4 MG PO ONE
--- OUTSIDE RECORDS SUMMARY | 2019-07-15 09:10 | XMS REPORT | Continuity of Care Document ---
:1955 External Reference #:[id number] Author Name Evelin Torres Care Team Providers Name Role Phone Julio Cesar Salas MD Primary Care Physician Unavailable Payers Date Identification Numbers Payment Provider Subscriber Policy Number: [id number] [employer] Enedina Chicas Group Number: [id number] [address] [address] PayID: [id number] RUSTY Fan [address] Problems Active Problems Provider Date Arthroplasty of knee Hanna Theodore M.D. Onset: 05/31/2019 Localized, primary osteoarthritis Hanna Theodore M.D. 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 Denies alcohol use Tobacco Use Start: Unknown Patient has never smoked Smoking Status Reviewed: 05/31/19 Patient has never smoked Exercise Type/Frequency Outdoor activity Allergies, Adverse Reactions, Alerts Description No Known Drug Allergies Medications Active Medications SIG Qnty Indications Ordering Date Provider Vitamin D 1 tab by Unknown mouth every day Aspirin 1 by mouth Unknown 81mg every day Calcium 1 tab by Unknown 600mg Tablets mouth every day Hydrochlorothiazide 1 by mouth Unknown 12.5mg Capsules every day Loratadine 1 by mouth Unknown 10mg Tablets every day History Medications Amoxicillin take 4 tablets by 4tabs Hanna Theodore, 01/01/2019 - 500mg mouth 1 hour before M.D. 04/18/2019 Tablets dental procedure Percocet take 1-2 tabs by 70tabs Z47.1 Hanna Theodore, 10/10/2018 - 5-325mg mouth q4-6 hours as M.D. 11/19/2018 Tablets needed pain patient has been taking this dose in hospital for post op pain Eliquis take 1 tablet by 60tabs Hanna Theodore, 10/10/2018 - 2.5mg mouth twice a day M.D. 12/31/2018 Tablets Colace 1 tab by mouth twice 30caps Hanna Theodore, 10/10/2018 - 100mg a day as needed for M.D. 11/19/2018 Capsules constipation Allergy Relief Unknown - 04/19/2019 Vital Signs Date Vital Result Comment 05/31/2019 8:59am Height 68 inches 5'8" Weight 287.00 lb Heart Rate 82 /min BP Systolic 148 mmHg BP Diastolic 82 mmHg Body Temperature 99.1 F Pain Level 6 BMI (Body Mass Index) 43.6 kg/m2 04/19/2019 9:05am Height 68 inches 5'8" Weight 287.50 lb Heart Rate 82 /min BP Systolic Sitting 140 mmHg Lue large cuff BP Diastolic Sitting 86 mmHg Lue large cuff Respiratory Rate 14 /min O2 % BldC Oximetry 96 % BMI (Body Mass Index) 43.7 kg/m2 Neck Circumference in inches 17.50 01/01/2019 10:12am Height 68 inches 5'8" Weight 275.00 lb BP Systolic 160 mmHg BP Diastolic 88 mmHg Body Temperature 98.7 F BMI (Body Mass Index) 41.8 kg/m2 11/20/2018 10:56am Height 68 inches 5'8" Weight 275.00 lb BP Systolic 121 mmHg BP Diastolic 76 mmHg Respiratory Rate 16 /min Pain Level 1 BMI (Body Mass Index) 41.8 kg/m2 10/21/2018 9:21am Height 68 inches 5'8" Weight 275.00 lb BP Systolic 136 mmHg BP Diastolic 82 mmHg Respiratory Rate 16 /min Body Temperature 98.2 F Pain Level 4 BMI (Body Mass Index) 41.8 kg/m2 10/14/2018 11:34am Height 68 inches 5'8" Weight 275.00 lb BP Systolic 140 mmHg BP Diastolic 80 mmHg Body Temperature 99.0 F BMI (Body Mass Index) 41.8 kg/m2 09/30/2018 9:40am Height 68 inches 5'8" Weight [...] BMI (Body Mass Index) 42.5 kg/m2 Results Test Date Facility Test Result H/L Range Note CBC Auto 09/30/2018 [facility] White Blood 9.3 10^3/uL Normal 3.5-10.[address] [place] [address] [phone] Red Blood Count 5.29 10^6/uL Normal 4.00-5.40 Hemoglobin 15.8 g/dL Normal 12.0-16.0 Hematocrit 46 % Normal 35-47 Mean Corpuscular Volume 87 fL Normal 80-97 Mean Corpuscular Hemoglobin 30 pg Normal 27-31 Mean Corpuscular HGB Conc 34 g/dL Normal 31-36 Red Cell Distribution Width 14 % Normal 10.5-15 Platelet Count 256 10^3/uL Normal 150-450 Mean Platelet Volume 9.2 fL Normal 7.4-10.4 Abs Neutrophils 5.2 10^3/uL Normal 1.5-7.7 Abs Lymphocytes 3.2 10^3/uL Normal 1.0-4.8 Abs Monocytes 0.6 10^3/uL Normal 0-0.8 Abs Eosinophils 0.2 10^3/uL Normal 0-0.6 Abs Basophils 0.1 10^3/uL Normal 0-0.2 Abs Nucleated RBC 0 10^3/uL Granulocyte % 55.7 % Lymphocyte % 34.9 % Monocyte % 6.8 % Eosinophil % 1.7 % Basophil % 0.9 % Nucleated Red Blood Cells % 0 Urinalysis Profile 09/30/2018 [facility] Urine Color Yellow [address] [place] [address] [phone] Urine Appearance Cloudy Urine Specific Williams 1.011 Normal 1.010-1.030 Urine pH 5.0 Normal 5-9 Urine Urobilinogen Negative Negative Urine Ketones Negative Negative Urine Protein Negative Negative Urine Leukocytes Negative Negative Urine Blood 1+ Abnormal Negative Urine Nitrite Negative Negative Urine Bilirubin Negative Negative Urine Glucose Negative Negative Urine White Blood Cell Trace(0-5/hpf) Absent Urine Red Blood Cell 1+(3-5/hpf) Abnormal Absent Urine Bacteria Absent Absent Urine Squamous Epithelial Cell Present Abnormal Absent Comp Metabolic 09/30/2018 [facility] Sodium 139 mmol/L Normal 135-[address] [place] [address] [phone] Potassium 3.9 mmol/L Normal 3.5-5.0 Chloride 102 mmol/L Normal 101-111 Co2 Carbon Dioxide 30 mmol/L Normal 22-32 Anion Gap 7 mmol/L Normal 2-11 Glucose 94 mg/dL Normal 70-100 Blood Urea Nitrogen 13 mg/dL Normal 6-24 Creatinine 0.69 mg/dL Normal 0.51-0.95 BUN/Creatinine Ratio 18.8 Normal 8-20 Calcium 10.1 mg/dL Normal 8.6-10.3 Total Protein 7.1 g/dL Normal 6.4-8.9 Albumin 4.0 g/dL Normal 3.2-5.2 Globulin 3.1 g/dL Normal 2-4 Albumin/Globulin Ratio 1.3 Normal 1-3 Total Bilirubin 0.70 mg/dL Normal 0.2-1.0 Alkaline Phosphatase 85 U/L Normal 34-104 Alt 35 U/L Normal 7-52 Ast 24 U/L Normal 13-39 Egfr Non- 85.9 >60 Egfr 104.0 >60 1 Inr/Protime 09/30/2018 [facility] Inr 0.96 Normal 0.77-1.[address] [place] [address] [phone] Laboratory test 09/30/2018 [facility] Partial 30.7 Normal 26.0 -36.[address] [address] Time PTT [phone] Type & Screen 09/30/2018 [facility] Patient O Positive [address] Blood Type [place], [place] [id number] [phone] Antibody Screen NEGATIVE Urine Culture And 09/30/2018 [facility] Urine Culture SEE RESULT [address] [place], [place] [id number] [phone] 1 Because ethnic data is not always readily available, this report includes an eGFR for both -Americans and non- Americans. The National Kidney Disease Education Program (NKDEP) does not endorse the use of the MDRD equation for patients that are not between the ages of 18 and 70, are , have extremes of body size, muscle mass, or nutritional status, or are non- or non-. According to the National Kidney Foundation, irrespective of diagnosis, the stage of the disease is based on the level of kidney function: Stage Description GFR(mL/min/1.73 m(2)) 1 Kidney damage with normal or decreased GFR 90 2 Kidney damage with mild decrease in GFR 60-89 3 Moderate decrease in GFR 30-59 4 Severe decrease in GFR 15-29 5 Kidney failure <15 (or dialysis) 2 SEE RESULT BELOW Name: JUANENEDINA : [address]: Hanna Theodore MD Acct: [id number] Unit: [id number] AGE: 63 Location: [facility] Re09/30/18 SEX: F Status: REG REF SPEC: [id number] RAMY: 09/30/18-1216 [facility] DR: Hanna Theodore MD REQ: [id number] RECD: 09/30/18124 STATUS: SHELIA DE LA PAZ DR: Julio Cesar Salas MD PC _ SOURCE: URINE SPDESC: ORDERED: Urine Culture QUERIES: Urine Source: Clean Catch Procedure Result Reported Site Urine Culture Final 10/01/18- 1218 ML No growth of clinically significant organisms * ML - Main Lab . END OF REPORT DEPARTMENT OF PATHOLOGY, [address] [place] [address] Carmelo Vick M.D. 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 Annika knee M25.462 Effusion, left knee M17.12 Unilateral primary osteoarthritis, left knee Office Visit 12/22/2015 [facility] Basim Rosenberg R07.9 Chest pain, 10:31a Assoc,juana BROWN M.D. unspecified Hospitalists R42 Dizziness and giddiness I10 Essential (primary) hypertension Office Visit 12/21/2015 10:30a [facility] Radha Perez R07.9 Chest pain, Assoc,juana Linn N.Myrna unspecified Hospitalists R42 Dizziness and giddiness I10 Essential (primary) hypertension Plan of Treatment Future Appointment(s):07/05/2019 9:00 am - [facility] 9:30 am - Nanette Ko NP at [facility]05/31/2019 - Hanna Theodore M.D.M25.561 Pain in right kneeNew Xrays:Knee 3 Views Bilateral, Ordered: 05/31/19M25.562 Pain in left kneeNew Xrays:Knee 3 Views Bilateral, Ordered: 05/31/19M25.461 Effusion, right kneeM17.11 Unilateral primary osteoarthritis, right kneeZ96.652 Presence of left artificial knee joint
--- OUTSIDE RECORDS SUMMARY | 2019-07-15 09:10 | XMS REPORT | Continuity of Care Document ---
:1955 External Reference #:[id number] Author Name Nanette Ko NP (transmitted by agent of provider Amy Mccormick) Address [address] 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 Onset: 05/31/2019 Localized, primary osteoarthritis Hanna Theodore M.D. Onset: 09/04/2018 Social History Type Date Description Comments Sex Unknown ETOH Use Denies alcohol use Tobacco Use Start: Unknown Patient has never smoked Smoking Status Reviewed: 06/23/19 Patient has never smoked Exercise Type/Frequency Outdoor [...] by 4tabs Hanna Theodore, 01/01/2019 - 500mg Tablets mouth 1 hour before M.D. 04/18/2019 dental procedure Immunizations Description No Information Available Vital Signs Date Vital Result Comment 06/23/2019 8:54am Height 68 inches 5'8" Weight 288.00 lb Heart Rate 85 /min BP Systolic Sitting 160 mmHg BP Diastolic Sitting 80 mmHg O2 % BldC Oximetry 94 % BMI (Body Mass Index) 43.8 kg/m2 05/31/2019 8:59am Height 68 inches 5'8" Weight 287.00 lb Heart Rate 82 /min BP Systolic 148 mmHg BP Diastolic 82 mmHg Body Temperature 99.1 F Pain Level 6 BMI (Body Mass Index) 43.6 kg/m2 Results Description No Information Available Procedures Date Code Description Status 04/19/2019 14264 Sleep Study Unattended,HRT Rate,Oxygen Sat,Resp Completed Effort/Airflow 04/19/2019 20383 Sleep Study Unattended,HRT Rate,Oxygen Sat,Resp Completed Effort/Airflow Medical Devices Description No Information Available Encounters Type Date Location Provider Dx Diagnosis Office Visit 06/23/2019 Pulmonology And Nanette G47.33 Obstructive sleep 9:30a [facility] Ko apnea (adult) [place] (pediatric) R53.83 Other fatigue E66.9 Obesity, unspecified Office Visit 05/31/2019 9:00a [facility] Hanna Theodore, M25.561 Pain in right Of C.M.A. M.D. knee M25.562 Pain in left knee M25.461 Effusion, right knee M17.11 Unilateral primary osteoarthritis, right knee Z96.652 Presence of left artificial knee joint Office Visit 04/19/2019 9:30a [facility] France Purvis, R06.83 [facility] R53.83 Other fatigue Assessments Date Code Description Provider 06/23/2019 G47.33 Obstructive sleep apnea (adult) (pediatric) Nanette Ko NP 06/23/2019 R53.83 Other fatigue Nanette Ko NP 06/23/2019 E66.9 Obesity, unspecified Nanette Ko NP 05/31/2019 M25.561 Pain in right knee Hanna Theodore M.D. 05/31/2019 M25.562 Pain in left knee Hanna Theodore M.D. 05/31/2019 M25.461 Effusion, right knee Hanna Theodore M.D. 05/31/2019 M17.11 Unilateral primary osteoarthritis, right Hanna Theodore M.D. knee 05/31/2019 Z96.652 Presence of left artificial knee joint Hanna Theodore M.D. 04/19/2019 G47.33 Obstructive sleep apnea (adult) (pediatric) France Purvis MD 04/19/2019 R06.83 Snoring France Purvis MD 04/19/2019 R53.83 Other fatigue France Purvis MD 01/01/2019 Z96.652 Presence of left artificial knee joint Hanna Theodore M.D. 01/01/2019 Z47.1 Aftercare following joint replacement Hanna Theodore M.D. surgery Plan of Treatment Future Appointment(s):07/15/2019 11:30 am - Hanna Theodore M.D. at [facility].07/05/2019 9:00 am - Hanna Theodore M.D. at [facility].06/23/2019 - Nanette Ko NPG47.33 Obstructive sleep apnea (adult) (pediatric)Follow up:3 monthsRecommendations:Remember to bring your CPAP with you when you go for your surgery If you have difficulty with your equipment, or need to replace your mask or hoses, please contact your homecare agency. If you have any further questions, please call the [facility] at [phone] If you have any sleepiness while driving you MUST avoid operating a vehicle or machinery. If you feel tired while driving tub puller and take a nap or switch drivers. If you know you are sleepy and need to go somewhere, arrange for a ride or use public transportation. It is very important to not risk your safety or the safetyof others.R53.83 Other lgsbastS92.9 Obesity, unspecified Functional Status Description No Information Available Mental Status Description No Information Available Referrals Description No Information Available
--- OUTSIDE RECORDS SUMMARY | 2019-07-15 09:10 | XMS REPORT | Continuity of Care Document ---
:1955 External Reference #:[id number] Author Name Hanna Theodore M.D. (transmitted by agent of provider Chyna Han) Address [address] [facility] [place] [address] Care Team Providers Name Role Phone Julio Cesar Salas MD - Internal Care Team Information [employer] Medicine Problems Active Problems Provider Date Arthroplasty of knee Hanna Theodore M.D. Onset: 05/31/2019 Localized, primary osteoarthritis Hanna Theodore M.D. Onset: 09/04/2018 Social History Type Date Description Comments Sex Unknown ETOH Use Denies alcohol use Tobacco Use Start: Unknown Patient has never smoked Smoking Status Reviewed: 07/05/19 Patient has never smoked Exercise Type/Frequency Outdoor [...] by mouth Unknown 10mg Tablets every day Immunizations Description No Information Available Vital Signs Date Vital Result Comment 07/05/2019 8:26am Height 68 inches 5'8" Weight 286.00 lb Heart Rate 80 /min BP Systolic 144 mmHg BP Diastolic 84 mmHg Respiratory Rate 18 /min Body Temperature 98.0 F Pain Level 2 BMI (Body Mass Index) 43.5 kg/m2 06/23/2019 8:54am Height 68 inches 5'8" Weight 288.00 lb Heart Rate 85 /min BP Systolic Sitting 160 mmHg BP Diastolic Sitting 80 mmHg O2 % BldC Oximetry 94 % BMI (Body Mass Index) 43.8 kg/m2 Results Test Date Facility Test Result H/L Range Note CBC Auto 07/05/2019 [facility] White Blood 8.2 10^3/uL Normal 3.5-10.[address] [place] [address] [phone] Red Blood Count 5.35 10^6/uL High 3.70-4.87 Hemoglobin 16.3 g/dL High 12.0-16.0 Hematocrit 46 % Normal 35-47 Mean Corpuscular Volume 86 fL Normal 80-97 Mean Corpuscular Hemoglobin 31 pg Normal 27-31 Mean Corpuscular HGB Conc 36 g/dL Normal 31-36 Red Cell Distribution Width 14 % Normal 10-15 Platelet Count 237 10^3/uL Normal 150-450 Mean Platelet Volume 9.3 fL Normal 7.4-10.4 Abs Neutrophils 4.4 10^3/uL Normal 1.5-7.7 Abs Lymphocytes 2.9 10^3/uL Normal 1.0-4.8 Abs Monocytes 0.6 10^3/uL Normal 0-0.8 Abs Eosinophils 0.1 10^3/uL Normal 0-0.6 Abs Basophils 0.1 10^3/uL Normal 0-0.2 Abs Nucleated RBC 0.0 10^3/uL Granulocyte % 53.4 % Lymphocyte % 36.1 % Monocyte % 7.8 % Eosinophil % 1.8 % Basophil % 0.9 % Nucleated Red Blood Cells % 0.1 Urinalysis Profile 07/05/2019 [facility] Urine Color [address] [place] [address] [phone] Urine Appearance Cloudy Urine Specific [place] 1.032 High 1.010-1.030 Urine pH 5.0 Normal 5-9 Urine Urobilinogen Negative Negative Urine Ketones Negative Negative Urine Protein Negative Negative Urine Leukocytes 1+ Abnormal Negative Urine Blood Negative Negative Urine Nitrite Negative Negative Urine Bilirubin Negative Negative Urine Glucose Negative Negative Urine White Blood Cell 2+(11-20/hpf) Abnormal Absent Urine Red Blood Cell 1+(3-5/hpf) Abnormal Absent Urine Bacteria Absent Absent Urine Squamous Epithelial Cell Present Abnormal Absent Comp Metabolic 07/05/2019 [facility] Sodium 140 mmol/L Normal 135-145 Panel [address] [place] [address] [phone] Potassium 3.9 mmol/L Normal 3.5-5.0 Chloride 105 mmol/L Normal 101-111 Co2 Carbon Dioxide 30 mmol/L Normal 22-32 Anion Gap 5 mmol/L Normal 2-11 Glucose 106 mg/dL High 70-100 Blood Urea Nitrogen 13 mg/dL Normal 6-24 Creatinine 0.74 mg/dL Normal 0.51-0.95 BUN/Creatinine Ratio 17.6 Normal 8-20 Calcium 9.6 mg/dL Normal 8.6-10.3 Total Protein 6.9 g/dL Normal 6.4-8.9 Albumin 4.0 g/dL Normal 3.2-5.2 Globulin 2.9 g/dL Normal 2-4 Albumin/Globulin Ratio 1.4 Normal 1-3 Total Bilirubin 0.70 mg/dL Normal 0.2-1.0 Alkaline Phosphatase 116 U/L High 34-104 Alt 35 U/L Normal 7-52 Ast 29 U/L Normal 13-39 Egfr Non- 79.0 >60 Egfr 95.6 >60 2 Inr/Protime 07/05/2019 [facility] Inr 1.01 Normal 0.82-1.[address] [place] [address] [phone] Laboratory test 07/05/2019 [facility] Partial 37.1 Normal 26.0 -38.0 [address] [place] [place] [address] Time PTT [phone] Type & Screen 07/05/2019 [facility] Patient O Positive [address] [place] [address] [phone] Antibody Screen NEGATIVE Urine Culture And 07/05/2019 [facility] Urine Culture SEE RESULT [address] [place], [place] [id number] [phone] 1 AA 07/15 2 Because ethnic data is not always readily [...] 15-29 5 Kidney failure <15 (or dialysis) 3 Standard intensity warfarin therapeutic range: 2.0-3.0 High intensity warfarin therapeutic range: 2.5-3.5 4 07/15 5 SEE RESULT BELOW Name: ENEDINA MARTINEZ : [address]: Hanna Theodore MD Acct: [id number] Unit: [id number] AGE: 64 Location: [facility] Re07/05/19 SEX: F Status: REG REF SPEC: [id number] RAMY: 07/05/[address]: Hanna Theodore MD REQ: [id number] RECD: 07/05/19 STATUS: COMP _ SOURCE: URINE SPDESC: ORDERED: Urine Culture COMMENTS: CHAO 07/15 QUERIES: Urine Source: Clean Catch Procedure Result Reported Site Urine Culture Final 07/06/19- 1330 ML No growth of clinically significant organisms * ML - Main Lab . END OF REPORT DEPARTMENT OF PATHOLOGY, [address] [place] [address] Carmelo Vick M.D. 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 M.D. knee M25.562 Pain in left knee M25.461 Effusion, right knee M17.11 Unilateral primary osteoarthritis, right knee Z96.652 Presence of left artificial knee joint Office Visit 04/19/2019 9:30a [facility]ology [facility] Sleep France Purvis R06.83 [facility] R53.83 Other fatigue Assessments Date Code Description Provider 07/05/2019 W19.xxxA Unspecified fall, initial encounter Hanna Theodore M.D. 07/05/2019 M17.11 Unilateral primary osteoarthritis, right Hanna Theodore M.D. knee 07/05/2019 M25.561 Pain in right knee Arnie Rabago.D. 06/23/2019 G47.33 Obstructive sleep apnea (adult) Nanette Ko NP (pediatric) 06/23/2019 R53.83 Other fatigue Nanette Ko NP 06/23/2019 E66.9 Obesity, unspecified Nanette Ko NP 06/23/2019 Z68.41 Body mass index (BMI) 40.0-44.9, adult Nanette Ko NP 05/31/2019 M25.561 Pain in right knee Arnie Rabago.DBonita 05/31/2019 M25.562 Pain in left knee Arnie Rabago.D. 05/31/2019 M25.461 Effusion, right knee Arnie Rabago.D. 05/31/2019 M17.11 Unilateral primary osteoarthritis, right Hanna Theodore M.D. knee 05/31/2019 Z96.652 Presence of left artificial knee joint Hanna Theodore M.D. 04/19/2019 G47.33 Obstructive sleep apnea (adult) France Purvis MD (pediatric) 04/19/2019 R06.83 Snoring France Purvis MD 04/19/2019 R53.83 Other fatigue France Purvis MD Plan of Treatment Future Appointment(s):07/28/2019 10:15 am - Hanna Theodore M.D. at [facility]07/15/2019 11:30 am - JULIA Shankar at [facility]07/15/2019 11:30 am - JULIA Valenzuela at [facility].07/15/2019 11:30 am - Hanna Theodore M.D. at [facility].07/05/2019 - Hanna Theodore M.D.W19.xxxA Unspecified fall, initial encounterFollow up:Follow up: thrxqwR61.11 Unilateral primary osteoarthritis, right kneeM25.561 Pain in right knee Functional Status Description No Information Available Mental Status Description No Information Available Referrals Description No Information Available
[2019-07-15] MEDS ORDERED: oxyCODONE TAB* 5 MG TAB PO PRN (09:16)
[2019-07-15] MEDS ORDERED: fentaNYL* 50 MCG/ML 2 ML VIAL (100 MCG VIAL) IV PRN (09:16)
[2019-07-15] MEDS ORDERED: PROCHLORPERAZINE INJ 5 MG/ML 2 ML VIAL IV PRN (09:16)
[2019-07-15] MEDS ORDERED: DiMENhydriNATE IV* 50 MG/ML VIAL IV PUSH PRN (09:16)
[2019-07-15] MEDS ORDERED: Naloxone* 0.4 MG/ML 1 ML VIAL IV PRN (09:16)
[2019-07-15] MEDS ORDERED: Scopolamine 1.5 mg* PATCH TRANSDERM PRN (09:16)
[2019-07-15] MEDS ORDERED: HYDROmorphone INJ1* 1 MG/ML SYRINGE IV PRN (09:16)
[2019-07-15] MEDS ORDERED: ceFAZolin 2 GM PREMIX in ORs 2 GM/50 ML BAG ONE (09:25)
[2019-07-15] MEDS ORDERED: Dexamethasone IV* 4 MG/ML 1 ML (4 MG) ONE (09:50)
[2019-07-15] MEDS ORDERED: Acetaminophen TAB* 325 MG ONE (09:51)
[2019-07-15] MEDS ORDERED: Gabapentin CAP(*) 300 MG ONE (09:51)
[2019-07-15] MEDS ORDERED: Ondansetron ODT TAB* 4 MG ONE (09:51)
[2019-07-15] MEDS ORDERED: celeCOXIB CAP* 200 MG ONE (09:51)
[2019-07-15] MEDS ORDERED: Buffered Lidocaine 1% SYRIN* 1 ML/SYRINGE INTRADERM ONE (09:52)
[2019-07-15] MEDS ORDERED: Famotidine IV* 10 MG/ML 2 ML (20 mg) ONE (09:52)
[2019-07-15] MEDS ORDERED: Dexamethasone TAB* 4 MG ONE (10:01)
[2019-07-15] MEDS ORDERED: Midazolam* 1 MG/ML 10 ML VIAL (10 MG) ONE (10:29)
[2019-07-15] MEDS ORDERED: KETAMINE HCL* 50 MG/ML 10 ML VIAL ONE (10:29)
[2019-07-15] MEDS ORDERED: fentaNYL* 50 MCG/ML 2 ML VIAL (100 MCG VIAL) ONE ×2 (10:29→14:44)
[2019-07-15] MEDS ORDERED: ROPIVACAINE 5 MG/ML 30 ML BTL (0.5%) ONE (11:09)
[2019-07-15] MEDS ORDERED: ceFAZolin 1 GM ADVAN(*) 1 GM ADDV.VIAL IVPB ONE (11:10)
[2019-07-15] MEDS ORDERED: HYDROmorphone INJ1* 1 MG/ML SYRINGE ONE ×2 (11:57→13:48)
[2019-07-15] MEDS ORDERED: Ketorolac INJ* 30 MG/ML 1 ML VIAL ONE (13:46)
[2019-07-15] MEDS ORDERED: Propofol* 10 MG/ML 20 ML BTL ONE (13:46)
[2019-07-15] MEDS ORDERED: Lidocaine 2% PF * 5 ML VIAL ONE (13:46)
[2019-07-15] MEDS ORDERED: Labetalol IV* 5 MG/ML 20 ML VIAL ONE (13:48)
[2019-07-15] MEDS ORDERED: Ondansetron INJ* 2 MG/ML VIAL IV PRN (14:19)
[2019-07-15] MEDS ORDERED: Polyethylene Glycol 3350* 17 GM PACKET PO PRN (14:19)
[2019-07-15] MEDS ORDERED: Magnesium Hydroxide LIQ* 30 ML UDC PO PRN (14:19)
[2019-07-15] MEDS ORDERED: traZODone TAB* 50 MG TAB PO PRN (14:19)
[2019-07-15] MEDS ORDERED: diPHENhydraMINE PO* 25 MG PO PRN (14:19)
[2019-07-15] MEDS ORDERED: Morphine INJ* 2 MG/ML 1 ML SYRINGE (TWO MG - NEW SYRINGE VERSION) IV PRN (14:19)
[2019-07-15] MEDS ORDERED: oxyCODONE/Acetamin 5/325 MG* TAB PO PRN (14:19)
[2019-07-15] MEDS ORDERED: Ondansetron ODT TAB* 4 MG PO PRN (14:19)
[2019-07-15] MEDS ORDERED: diPHENhydraMINE IV* 50 MG/ML 1 ml VIAL (BENADRYL) IV PRN (14:19)
[2019-07-15] MEDS ORDERED: Cyclobenzaprine TAB* 10 MG PO PRN (14:19)
--- NOTE | 2019-07-15 15:42 | PN ---
Progress Note - Progress Note Date of Service: 07/15/19 Note: Pt seen at bedside POD 0 sp RTK. She feels well, pain is well controlled. Denies CP, SOB, dizziness, nausea. Dressing CDI, DF/PF intact, DP2+, sensation intact to light touch distally.
[2019-07-15] MEDS: Lactated Ringers 1000 ML Bag* 1,000 ML IV SCH (15:55)
--- NOTE | 2019-07-15 16:30 | CONSULT ---
Consult Consult: HOSPITALIST CONSULT Requesting Provider: Dr. Theodore Reason for Consultation: Medical co-management HPI: Ms Chicas is a 64 yo F with a h/o HTN, obesity, MARY and OA who underwent elective R Total Knee Arthroplasty with Dr. Theodore today. The patient had failed conservative management of her R knee OA. Currently the patient is feeling sleepy. She has mild discomfort in her R knee but it is tolerable. She denies any CP, SOB, issues with bowel or bladder. PMHx: HTN, MARY, OA, obesity PSHx: R knee arthroscopy, B/L shoulder arthroscopies, L TKR, cataract extraction. All: NKDA Meds: Home and current medication regimens reviewed. FamHx: CAD in both parents. SocHx: pt is a non-smoker, she does not drink EtOH. She is living with her son who will help her after surgery. 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 ROS: complete 11 system review of systems obtained, pertinent positives/ negatives as per HPI and otherwise negative. PE: BP 136/90 HR 77 RR 16 O2 sat 95% on 2L gen: morbidly obese middle aged female sitting up in bed, NAD HEENT: EOMI, oropharynx slightly dry Card: nl S1S2 RRR, II/ systolic murmur heard best at the LUSB, trace B/L pedal edema Lungs: CTA anteriorly Abd: BS+ soft, NT/ND Musculo: R knee in post op dressing with cryo unit in place Skin: warm and dry Neuro: non-focal neuro exam Psych: sleepy but awakens easily, oriented x3 A/P: Ms Chicas is a 64 yo F who has a h/o HTN, MARY and obesity who is POD#0 from a R TKR. 1. R TKR: management including DVT prophylaxis per orthopedics. Pt with about 400ml blood loss. Will follow H/H. Monitor BP closely. 2. HTN: BPs have been under acceptable control. Will continue HCTZ 12.5mg daily. 3. MARY: pt brought her own CPAP. This has been ordered. 4. DVT-P: to start eliquis tomorrow AM. 5. Full code
[2019-07-15] MEDS: traMADol TAB* 50 MG PO SCH ×2 (17:09→23:39)
[2019-07-15] MEDS: Acetaminophen TAB* 325 MG PO SCH (18:11)
[2019-07-15] MEDS: ceFAZolin 1 GM ADVAN(*) 1 GM in NS 0.9% 50 ML* 50 ML IVPB SCH (18:11)
--- NOTE | 2019-07-15 20:33 | OP ---
Operative Report - Blank - Operative Report Date of Operation: 07/15/19 Note: JACKELYN MARTINEZ 1955 Date of Surgery: 07/15/19 Hanna Theodore MD [employer] Shift Manager: Roderick THOMAS did help throughout the procedure with preparation of the knee, wound retraction, manipulation of the knee, and wound closure. Anesthesiologist: Tae Liang MD Anesthesia Type: Spinal Preoperative Diagnosis: Right severe degenerative osteoarthritis of the knee Postoperative Diagnosis: As above Procedure Performed: Right Total Knee Arthroplasty Tourniquet time: 48 minutes Complications: None Specimen: Bone and cartilage from the right knee joint sent to pathology. Hardware Used: Cemented Blas and Nephew total knee hardware was used - For the femur a size 5 right narrow oxinium legion posterior stabilized femoral component, for the tibia a size 3 right emilie II tibial baseplate, for the insert a size 9mm 3-4 posterior stabilized articular polyethylene insert, and for the patella a size 32 3-peg all poly patella. Brief History/Indication: JACKELYN MARTINEZ was known in clinic and had a history of severe right knee pain and swelling. She failed conservative treatment with anti-inflammatories, pain pills, intra-articular injections and physical therapy. She elected to undergo right total knee arthroplasty due to continued pain and decreased quality of life. Radiographs showed severe end stage osteoarthritis of the knee with bone on bone contact. Informed consent was obtained from the patient. She understood the risks of surgery included but were not limited to: bleeding, infection, damage to nearby structures, intraoperative fracture, nerve palsy, failure of the hardware, early loosening, knee stiffness or loss of motion, anesthesia complications, stroke, heart attack , blood clot and . She wished to proceed. Intra-Operative Findings: Intraoperatively the patient was noted to have severe loss of cartilage in all 3 compartments of the knee. Description of the Procedure: JACKELYN MARTINEZ was identified in the preanesthesia unit. Her right knee was marked as the correct operative side. Informed consent was signed and placed in the chart. The patient was taken to the operating room and placed under anesthesia without complication. A holguin catheter was placed. A tourniquet was placed on the right thigh. The right lower extremity was prepped and draped in the usual sterile fashion. Preoperative time-out was made to correctly identify the patient, side and site. Appropriate intraoperative antibiotics were given within one hour of incision. Tourniquet was inflated. A midline incision was made and carried sharply down to the extensor mechanism. A new 10 blade was used to make a standard medial parapatellar arthrotomy. The patella was subluxed laterally. Electrocautery was used to dissect soft tissue off the superomedial tibia to the midsagittal plane. The knee was flexed up. The anterior horn of the lateral meniscus and the ACL were sharply incised. A drill was used to enter the distal femur. The intramedullary distal femoral cutting guide was pinned on the distal femur. The oscillating saw was used to make the distal femoral cut. The external rotation guide was pinned on the distal femur and the distal femur was sized to a size 5. The size 5 multi-cutting jig was pinned on the distal femur. The oscillating saw was used to make the appropriate 4 chamfer cuts. Next the PCL was completely released. The extramedullary tibial cutting guide was pinned on the proximal tibia and the oscillating saw was used to make the proximal tibial cut perpendicular to the mechanical axis of the tibia. The bone was carefully removed. The knee was brought out into full extension. The spacer block was placed and had excellent fit with the knee in full extension. The medial and lateral ligaments were well balanced. The flexion and extension gaps were well balanced. The knee was flexed up. Lamina professor of psychology was placed both medially and laterally. Any remaining meniscus was removed with electrocautery. Curved osteotome was used to remove any posterior osteophytes. The tibial tray and drop daily were placed and confirmed a satisfactory tibial cut. The size 5 right narrow femoral trial was impacted onto the distal femur. This trial had excellent fit and stability. The box for the posterior stabilized implant was prepared using a box cut osteotome and a reamer. Next a tibial tray trial and 9 mm insert trial was placed. The knee was taken through a range of motion and had full extension to 130 degrees of flexion. Patellofemoral tracking was satisfactory. The patella was inverted and sized to a size 32. Three peg holes were drilled through the size 32 drill guide. The trial patella was placed and the knee was taken through a range of motion. There was satisfactory patellofemoral tracking. All trials were removed. The tibia was subluxed anteriorly and sized to a size 3. The proximal tibial was prepared with a size 3 keel punch. All bony cut surfaces were irrigated with sterile saline and dried. Final implants were cemented into place starting with the tibia, followed by the femur, and last the patella. A 9 mm insert trial was placed and the knee was brought into full extension. Tourniquet was turned down and the knee was copiously irrigated with sterile saline. Electrocautery was used to obtain meticulous hemostasis. Once the cement had fully cured, the insert trial was removed. Any excess cement was removed from around the hardware and capsule. Final insert chosen was a 9 mm posterior stabilized Emilie II articular insert size 3-4. Stability of the insert was checked and noted to be stable. The extensor mechanism was closed using number 1 vicryls. The rest of the incision was closed in a layered fashion using 0 and 2-0 vicryls. The skin was closed using 3-0 nylon suture. Sterile xeroform, 4x4s and webril were used to cover the incision. Doyle wrap and cold pack were used to cover the dressings. The patients anesthesia was reversed without difficulty. She was taken to the PACU in stable condition. Intended weight-bearing will be as tolerated.
[2019-07-15] MEDS: Docusate CAP* 100 MG PO SCH (21:29)
[2019-07-15] MEDS: oxyCODONE TAB* 5 MG TAB PO PRN (21:30)
[2019-07-15] MEDS: Magnesium Hydroxide LIQ* 30 ML UDC PO SCH (21:31)
[2019-07-16] MEDS: ceFAZolin 1 GM ADVAN(*) 1 GM in NS 0.9% 50 ML* 50 ML IVPB SCH ×2 (02:07→10:46)
[2019-07-16] MEDS: Lactated Ringers 1000 ML Bag* 1,000 ML IV SCH (02:08)
[2019-07-16] MEDS: Acetaminophen TAB* 325 MG PO SCH ×3 (02:10→17:19)
[2019-07-16] MEDS: traMADol TAB* 50 MG PO SCH ×3 (05:47→17:19)
[2019-07-16] MEDS: Docusate CAP* 100 MG PO SCH (07:26)
[2019-07-16] MEDS: Magnesium Hydroxide LIQ* 30 ML UDC PO SCH (07:26)
[2019-07-16] MEDS: oxyCODONE TAB* 5 MG TAB PO PRN ×2 (07:27→13:50)
--- NOTE | 2019-07-16 08:51 | PN ---
Subjective Date of Service: 07/16/19 Interval History: HOSPITALIST PROGRESS NOTE Patient seen and examined at bedside. Care reviewed and d/w Rosy Roy RN. She feels well today. Knee pain is controlled, did well with PT. Tolerating diet well, denies N/V. Family History: Unchanged from Admission Social History: Unchanged from Admission Past Medical History: Unchanged from Admission Objective Active Medications: Acetaminophen (Tylenol Tab*) 975 mg PO Q8H [facility] Last Admin: 07/16/19 02:10 Dose: Not Given Apixaban (Eliquis*) 2.5 mg PO BID [facility] Bisacodyl (Dulcolax Supp*) 10 mg MA DAILY PRN PRN Reason: CONSTIPATION Calcium Carbonate (Tums*) 600 mg PO QAM [facility] Cetirizine HCl (Zyrtec*) 10 mg PO QAM [facility] Last Admin: 07/16/19 07:26 Dose: 10 mg Cholecalciferol (Vitamin D Tab*) 5,000 units PO QAM [facility] Last Admin: 07/16/19 07:27 Dose: 5,000 units Cyclobenzaprine HCl (Flexeril Tab*) 10 mg PO Q6H PRN PRN Reason: SPASMS Diphenhydramine HCl (Benadryl Iv*) 25 mg IV Q6H PRN PRN Reason: PRURITIS Diphenhydramine HCl (Benadryl Po*) 25 mg PO Q6H PRN PRN Reason: PRURITIS Docusate Sodium (Colace Cap*) 100 mg PO BID [facility] Last Admin: 07/16/19 07:26 Dose: 100 mg Hydrochlorothiazide (Hydrodiuril Tab*) 12.5 mg PO QAM [facility] Cefazolin Sodium 1 gm/ Sodium (Chloride) 50 mls @ 200 mls/hr IVPB Q8H [facility] Stop: 07/16/19 10:14 Last Admin: 07/16/19 02:07 Dose: 200 mls/hr Lactated Ringer's (Lactated Ringers 1000 Ml Bag*) 1,000 mls @ 100 mls/hr IV PER RATE [facility] Last Admin: 07/16/19 02:08 Dose: 100 mls/hr Lactulose (Lactulose*) 30 ml PO BID PRN PRN Reason: CONSTIPATION Magnesium Hydroxide (Milk Of Magnesia Liq*) 30 ml PO BID [facility] Last Admin: 07/16/19 07:26 Dose: 30 ml Magnesium Hydroxide (Milk Of Magnesia Liq*) 30 ml PO Q6H PRN PRN Reason: CONSTIPATION Morphine Sulfate (Morphine Inj (Syringe))*) 2 mg IV Q4H PRN PRN Reason: Pain - Unrelieved Multivitamins (Theragran Tab*) 1 tab PO DAILY [facility] Last Admin: 07/16/19 07:26 Dose: 1 tab Ondansetron HCl (Zofran Inj*) 4 mg IV Q6H PRN PRN Reason: NAUSEA Ondansetron HCl (Zofran Odt Tab*) 4 mg PO Q6H PRN PRN Reason: NAUSEA Oxycodone HCl (Roxycodone Tab*) 10 mg PO Q4H PRN PRN Reason: Pain - Breakthrough Last Admin: 07/16/19 07:27 Dose: 10 mg Oxycodone/Acetaminophen (Percocet 5/325 Tab*) 1 tab PO Q4H PRN PRN Reason: PAIN - MODERATE Oxycodone/Acetaminophen (Percocet 5/325 Tab*) 2 tab PO Q4H PRN PRN Reason: PAIN - SEVERE Polyethylene Glycol/Electrolytes (Miralax*) 17 gm PO DAILY PRN PRN Reason: Constipation Tramadol HCl (Ultram*) 50 mg PO Q6H [facility] Last Admin: 07/16/19 05:47 Dose: 50 mg Trazodone HCl (Desyrel Tab*) 25 mg PO BEDTIME PRN PRN Reason: insomnia Vital Signs - 8 hr 07/16/19 07/16/19 07/16/19 02:10 03:34 05:47 Temperature 97.4 F Pulse Rate 75 Respiratory 16 16 16 Rate Blood Pressure 125/50 (mmHg) O2 Sat by Pulse 97 Oximetry 07/16/19 07/16/19 07/16/19 07:23 07:27 07:39 Temperature 98 F Pulse Rate 70 Respiratory 16 16 16 Rate Blood Pressure 124/59 (mmHg) O2 Sat by Pulse 97 97 Oximetry Oxygen Devices in Use Now: None Appearance: Pleasant morbid obese lady sitting up in bed in [facility]. Eyes: No Scleral Icterus Ears/Nose/Mouth/Throat: Mucous Membranes Moist Neck: Trachea Midline Respiratory: Symmetrical Chest Expansion and Respiratory Effort, Clear to Auscultation Cardiovascular: RRR - Normal S1 and S2, +SM Abdominal: NL Sounds; No Tenderness; No Distention - morbid obese Extremities: - - Cryounit in place right knee, good pulses and capillary refill , sensation intact Neurological: Alert and Oriented x 3, NL Muscle Strength and Tone Result Diagrams: 07/16/19 08:31 09 08:31 Assess/Plan/Problems-Billing Assessment: Ms Chicas is a 64 yo F who has a PMH HTN, MARY and morbidity obesity with BMI 43.6 who was admitted for an elective right TKR. - Patient Problems (1) Status post total right knee replacement Comment: - Management as per Ortho. (2) Essential hypertension Comment: - Controlled. - Continue HCTZ. (3) Obstructive sleep apnea Comment: - Continue CPAP. (4) DVT prophylaxis Comment: - Apixaban as per ortho (5) Full code status
[2019-07-16 08:59] LABS: Hematocrit 37 % (35-47); Hemoglobin 12.6 g/dL (12.0-16.0); Mean Platelet Volume 9.1 fL (7.4-10.4); Platelet Count 210 10^3/uL (150-450)
[2019-07-16] MEDS ORDERED: Cholecalciferol TAB* 1000 UNITS PO SCH (09:00)
[2019-07-16] MEDS ORDERED: Vitamin THERAPEUTIC TAB PO SCH (09:00)
[2019-07-16] MEDS ORDERED: Calcium Carbonate CHEW TAB* 500 MG (TUMS) PO SCH (09:00)
[2019-07-16] MEDS ORDERED: Apixaban* 2.5 MG TAB PO SCH (09:00)
[2019-07-16] MEDS ORDERED: Cetirizine* 10 MG TAB PO SCH (09:00)
[2019-07-16] MEDS ORDERED: Hydrochlorothiazide TAB* 25 MG PO SCH (09:00)
[2019-07-16 09:14] LABS: BUN/Creatinine Ratio 16.7 (8-20); Blood Urea Nitrogen 13 mg/dL (6-24); CO2 Carbon Dioxide 30 mmol/L (22-32); Calcium 8.6 mg/dL (8.6-10.3); Chloride 101 mmol/L (101-111); EGFR Non-African American 74.4 (>60); Glucose 175 mg/dL (70-100); Sodium 136 mmol/L (135-145)
[2019-07-16 09:27] LABS: Anion Gap 5 mmol/L (2-11)
[2019-07-16] MEDS: oxyCODONE/Acetamin 5/325 MG* TAB PO PRN ×2 (10:46→17:52)
--- NOTE | 2019-07-16 11:38 | PN ---
Progress Note - Progress Note Date of Service: 07/16/19 SOAP: Subjective: []Patient seen at bedside. She did well with therapy. She denies SOB, dizziness, nausea. She has moderate right knee pain currently. She would like to see how therapy goes this afternoon before deciding if she feels ready to go home today. Objective: [] Vital Signs Temp 97.6 F 07/16/19 11:15 Pulse 82 07/16/19 11:15 Resp 16 07/16/19 11:15 BP 146/59 07/16/19 11:15 Pulse Ox 94 07/16/19 11:15 Intake & Output 07/15/19 07/16/19 07/16/19 18:59 06:59 18:59 Intake Total 1999 2240 1277 Output Total 1100 2875 250 Balance 900 -635 1027 Weight 287 lb Intake: IV Fluids 1999 847 LR 1999 847 IVPB 110 ABX - CEFAZOLIN 110 Oral 2240 320 Output: Urine 250 [place] 600 2875 Estimated Blood Loss 500 Laboratory Results - last 24 hr 07/16/19 07/16/19 08:31 08:31 Hgb 12.6 Hct 37 Plt Count 210 MPV 9.1 Sodium 136 Potassium TNP Chloride 101 Carbon Dioxide 30 Anion Gap 5 BUN 13 Creatinine 0.78 Est GFR ( Amer) 90.0 Est GFR (Non-Af Amer) 74.4 BUN/Creatinine Ratio 16.7 Glucose 175 H Calcium 8.6 Right knee dressings are dry and intact calf NT +DF right ankle sensation and circulation are intact distally Assessment: []s/p right total knee arthroplasty POD #1 Plan: []PT/OT WBAT RLE eliquis for DVT prophylaxis Home this evening vs tomorrow
--- NOTE | 2019-07-16 14:16 | DS ---
Orthopedic Discharge Summary - Discharge Summary Date of Admission:07/15/19 Date of Discharge: 07/16/19 Date of Surgery: 07/15/19 Attending Orthopedic Provider: Dr. Theodore Pre-operative Diagnosis: Degenerative arthritis right knee Operative Procedure: Right total knee arthroplasty Disposition of Patient: home Condition of Patient: stable History: JACKELYN MARTINEZ is a 64 year old F with years of increasingly severe right knee pain. Patient has failed conservative management and has elected to undergo a right total knee replacement Hospital Course: JACKELYN was admitted to [facility] on 07/15/19. Patient underwent a right total knee without complication followed by a brief recovery in PACU and transfer to the Short Stay Surgical Unit in stable condition. Our hospitalist service, physical therapy and occupational therapy also participated in this patients care. Post-op day 1: patient was alert and in no acute distress. Dressing was clean, dry and intact. Operative extremity dorsiflexion and plantarflexion intact, sensation intact to light touch distally , DP2+. Post-op day two: dressing was changed, incision was clean, dry and intact. Patient was deemed to be medically and orthopedically stable for discharge. Physical therapy goals were met. Home Medications Medication Instructions Recorded Confirmed Type LoraTADine TAB(NF) [Claritin 10 MG 10 mg PO QAM 12/21/15 07/15/19 History TAB(NF)] Calcium 600 mg PO QAM 10/03/16 07/15/19 History Cholecalciferol (Vitamin D3) 5,000 unit PO QAM 09/30/18 07/15/19 History Vitamin D3 hydroCHLOROthiazide 12.5 mg PO QAM 09/30/18 07/15/19 History [Hydrochlorothiazide] Apixaban* [Eliquis*] 2.5 mg PO BID #60 tab 07/16/19 Rx Docusate CAP* [Colace Cap*] 100 mg PO BID cap 07/16/19 Rx oxyCODONE/Acetamin 5/325 MG* 1 - 2 tab PO Q4H PRN #56 tab MDD 8 07/16/19 Rx [Percocet 5/325 TAB*] Discharge Instructions following Orthopedic Surgery: Activity: * Weight Bearing as tolerated * Continue physical therapy and occupational therapy exercises as shown Wound care: * OK to shower on post-op day 3, no bathing, swimming, or submerging wound. * Use gentle soap, pat dry. Cover with gauze, CECILY wrap or tape. * Visiting home nurse to do wound checks. Call Orthopedic office for: * Increased drainage * Redness * Increased pain * Fever Go to ER with shortness of breath or chest pain. Diet: * Regular diet * Increase fluids and fiber to prevent constipation. * Continue to use stool softeners, call office if no bowel motion within 48 hours. Medications See Home Medication List in your packet for medications that you should take after discharge. DVT Prophylaxis: Eliquis Dosin.5 mg, 1 tab every 12 hours x 30 days Pain Control: Percocet Dosin/325 mg 1-2 tabs by mouth every 4-6 hours as needed for pain. Maximum of 10 tabs per day. Please note that Percocet contains Tylenol (acetaminophen). Maximum daily dose of Tylenol is 4000 mg from all sources. Antibiotics are required prior to any dental work. FOLLOW UP: Follow up with Dr. Theodore Within 10-14 days, call for appointment Please call our office with any questions or concerns ([phone])
[2019-07-16 15:57] VITALS: BP 133/59
[2019-07-17] MEDS ORDERED: Calcium Carbonate CHEW TAB* 500 MG (TUMS) PO SCH (09:00)
[2019-07-17] MEDS ORDERED: Bisacodyl SUPP* 10 MG SUPP PR PRN (14:19)
[2019-07-18] MEDS ORDERED: Scopolamine PATCH Remove* 1 NOTE MISC PATCH OFF ONE (09:17)
== END 2019-07-16 18:53 | disposition home or self-care (01) | DRG 302 ==
LOC: AA 09:07 → SSU 16:03
PROVIDERS: ADMIT Orthopaedic Surgery Adult Reconstructive Orthopaedic Surgery; ATTEND Orthopaedic Surgery Adult Reconstructive Orthopaedic Surgery
PROC: 0SRC069 Replacement of Right Knee Joint with Oxidized Zirconium on Polyethylene Synthetic Substitute, Cemented, Open Approach (ICD-10-PCS; principal; 2019-07-15 12:15)
DX: M17.11 Unilateral primary osteoarthritis, right knee (principal); Z68.41 Body mass index [BMI] 40.0-44.9, adult; I10 Essential (primary) hypertension; E66.01 Morbid (severe) obesity due to excess calories; Z96.652 Presence of left artificial knee joint; M25.461 Effusion, right knee; F41.9 Anxiety disorder, unspecified; E78.5 Hyperlipidemia, unspecified; H91.90 Unspecified hearing loss, unspecified ear; D86.9 Sarcoidosis, unspecified; J30.2 Other seasonal allergic rhinitis; R73.09 Other abnormal glucose; G47.33 Obstructive sleep apnea (adult) (pediatric); M25.761 Osteophyte, right knee; Z82.49 Family history of ischemic heart disease and other diseases of the circulatory system; Z83.49 Family history of other endocrine, nutritional and metabolic diseases; Z88.8 Allergy status to other drugs, medicaments and biological substances; Z86.010 Personal history of colon polyps; Z98.41 Cataract extraction status, right eye; Z98.42 Cataract extraction status, left eye
CPT/HCPCS: 36415; 80048; 85014; 85018; 85049; 88305; 88311; A9270-GY; C1776; J0690; J1100; J1170; J1885; J2250; J2704; J2795; J3010; J8540